=== PATIENT | male | born 1960 ===

== ENCOUNTER 2022-05-01 05:48 | Day surgery (SDC) | payer OTHER ==
[~2022-05-01 05:48] MED LIST: ALTACE5 MG PO; GABAPENTIN800 M1 PO; GLIPIZIDE XL5 MG PO; ISOSORBIDE DINI30 MG PO; METFORMIN HCL500 M3 PO; PLAVIX75 MG PO; TOPROL XL25 M1 PO; ZOCOR20 MG PO
== END 2022-05-01 17:10 | disposition home or self-care (01) ==
LOC: CIR.AMB 05:48
PROVIDERS: ATTEND Orthopaedic Surgery Hand Surgery
DX: G56.01 Carpal tunnel syndrome, right upper limb (principal); E11.40 Type 2 diabetes mellitus with diabetic neuropathy, unspecified; Z79.84 Long term (current) use of oral hypoglycemic drugs; Z20.822 Contact with and (suspected) exposure to COVID-19